=== PATIENT | male | born 1995 | race African-American/Black ===

== ENCOUNTER 2017-10-16 11:49 | Emergency (ER) | payer MEDICAID ==
[~2017-10-16] VITALS: Ht 167.6 cm; Wt 90.9 kg
[2017-10-16 11:51] VITALS: BP 128/64; TEMP 100
[2017-10-16 12:53] LABS: HEMATOCRIT 48.3 % (42.0-52.0); HEMOGLOBIN 16.7 g/dl (13.5-18.0); MEAN CELL VOLUME 86 fl (80.0-100.0); MEAN CORPUSCULAR HEMOGLOBIN 30 pg (27.0-31.0); MEAN CORPUSCULAR HGB CONC 35 g/dl (33.0-37.0); MEAN PLATELET VOLUME 9.7 fl (7.4-10.4); PLATELET COUNT 337 K/mm3 (130-400); RED BLOOD COUNT 5.61 M/mm3 (4.20-5.60); REDCELL DISTRIBUTION WIDTH-CV 12.7 % (11.5-14.5)
[2017-10-16 12:59] LABS: ALBUMIN 3.5 gm/dL (3.5-5.0); BILIRUBIN,TOTAL 0.2 mg/dL (0.0-1.0); CALCIUM 8.8 mg/dL (8.4-10.2); CREATININE, serum 0.88 mg/dL (0.66-1.25); POTASSIUM 3.9 mmol/L (3.4-5.0); TOTAL PROTEIN 6.4 gm/dL (6.4-8.2)
[2017-10-16] MEDS ORDERED: CEPHALEXIN500 M1 PO (13:08)
[2017-10-16 13:19] VITALS: PULSE 89
[2017-10-16 13:42] LABS: BAND 6 % (0-10); BASOPHIL 1 % (0-2); EOSINOPHIL 1 % (0-4); LYMPHOCYTE 35 % (20.0-51.0); NEUTROPHILS 53 % (42.0-75.2); PLATELET ESTIMATE NORMAL (NORMAL)
== END 2017-10-16 13:20 | disposition home or self-care (01) ==
LOC: COL.ER 11:49
PROVIDERS: Physician Assistant
DX: J02.0 Streptococcal pharyngitis (principal); F17.210 Nicotine dependence, cigarettes, uncomplicated